=== PATIENT | male | born 1955 ===

== ENCOUNTER 2018-06-06 19:09 | Inpatient (IN) | payer OTHER ==
[2018-06-06] MEDS ORDERED: Sodium Chloride 0.9% 1,000 ML IV STA (19:52)
[2018-06-06] MEDS ORDERED: Iohexol 240 (50 ml) PO STA (19:52)
[2018-06-06] MEDS ORDERED: Iohexol 240 (50 ml) ONE (20:02)
[2018-06-06 20:23] LABS: BLOOD UREA NITROGEN 17 mg/dl (9-20); CALCIUM 9.4 mg/dL (8.4-10.2); GFR NON-AFRICAN AMERICAN > 60
[2018-06-06 20:31] LABS: ALB/GLOB RATIO 1.3 (1.0-2.1); ALBUMIN 4.7 g/dL (3.5-5.0); ALT/SGPT 54 U/L (21-72); AST/SGOT 70 U/L (17-59); BASO % 0.2 % (0.0-2.0); EOS % 0.4 % (0.0-4.0); HEMOGLOBIN 14.5 g/dL (12.0-18.0); LYMPH # 2.1 K/uL (1.0-4.3); LYMPH % 18.2 % (20.0-40.0); MEAN CELL VOLUME 92.2 fl (80.0-94.0); MEAN CORPUSCULAR HEMOGLOBIN 30.1 pg (27.0-31.0); MEAN CORPUSCULAR HGB CONC 32.6 g/dL (33.0-37.0); MEAN PLATELET VOLUME 8.3 fl (7.2-11.7); MONO # 0.4 K/uL (0.0-0.8); NEUT # 8.7 K/uL (1.8-7.0); NEUT % 77.2 % (50.0-75.0); RBC 4.81 Mil/uL (4.40-5.90); RED CELL DISTRIBUTION WIDTH 13.1 % (11.5-14.5); WHITE BLOOD COUNT 11.3 K/uL (4.8-10.8)
--- NOTE | 2018-06-06 20:58 | ED PDOC ---
HPI: Abdomen Time Seen by Provider: 06/06/18 19:39 Chief Complaint (Nursing): Abdominal Pain Chief Complaint (Provider): Abdominal Pain History Per: Patient History/Exam Limitations: no limitations Onset/Duration Of Symptoms: Days (x2) Current Symptoms Are (Timing): Still Present Additional Complaint(s): 62 y/o male with no significant PMHx presents to the ED for evaluation of abdominal pain, onset two days ago. Patient reports pain developed while traveling from [place] two days ago. Patient notes pain is in the lower abdomen. Patient states that since onset of pain he has been touring the area but developed poor appetite and 2 episodes of non-bloody, non-bilious vomiting as well as increased pain to the LLQ and chills. Otherwise, patient denies urinary symptoms, diarrhea and constipation. PMD: in [place] Past Medical History Reviewed: Historical Data, Nursing Documentation, Vital Signs Vital Signs: Last Vital Signs Temp 97.2 F L 06/06/18 19:34 Pulse 59 L 06/06/18 19:34 Resp 16 06/06/18 19:34 BP 140/73 06/06/18 19:34 Pulse Ox 100 06/06/18 19:34 - Medical History PMH: No Chronic Diseases - Surgical History Other surgeries: One prostrate biposy that was negative for cancer - Family History Family History: States: No Known Family Hx - Social History Current smoker - smoking cessation education provided: No Alcohol: None Drugs: Denies - Home Medications Home Medications: Ambulatory Orders Medication Instructions Recorded No Known Home Med 06/07/18 - Allergies Allergies/Adverse Reactions: Allergies Allergy/AdvReac Type Severity Reaction Status Date / Time Sulfa (Sulfonamide Allergy RASH Verified 06/07/18 06:42 Antibiotics) Review of Systems ROS Statement: Except As Marked, All Systems Reviewed And Found Negative (as per HPI) Constitutional: Positive for: Chills Gastrointestinal: Positive for: Vomiting (x2 EPISODES OF NON-BLOODY, NON- BILIOUS), Abdominal Pain, Other (POOR APPETITE). Negative for: Diarrhea, Constipation Genitourinary Male: Negative for: Dysuria, Frequency, Hematuria Physical Exam - Reviewed Nursing Documentation Reviewed: Yes Vital Signs Reviewed: Yes - Physical Exam Appears: Positive for: In Acute Distress (mild painful distress) Head Exam: Positive for: ATRAUMATIC, NORMOCEPHALIC Skin: Positive for: Warm, Dry Eye Exam: Positive for: EOMI, PERRL ENT: Positive for: Other (tachy mucous membrane) Neck: Positive for: Painless ROM, Supple Cardiovascular/Chest: Positive for: Regular Rate, Rhythm. Negative for: Murmur Respiratory: Positive for: Normal Breath Sounds. Negative for: Respiratory Distress Gastrointestinal/Abdominal: Positive for: Soft, Tenderness ([place] Tenderness), Other (Rovsing's Sign). Negative for: Mass, Guarding, Rebound Back: Positive for: Normal Inspection. Negative for: L CVA Tenderness, R CVA Tenderness Extremity: Positive for: Normal ROM. Negative for: Deformity Lymphatic: Negative for: Adenopathy Neurological/Psych: Positive for: Awake. Negative for: Motor/Sensory Deficits - Laboratory Results Result Diagrams: 06/08/18 06:15 06/08/18 06:15 Lab Results: Total Bilirubin 1.4 mg/dl (0.2-1.3) H 06/06/18 20:05 AST 70 U/L (17-59) H 06/06/18 20:05 ALT 54 U/L (21-72) 06/06/18 20:05 Alkaline Phosphatase 111 U/L (38-126) 06/06/18 20:05 Total Protein 8.5 G/DL (6.3-8.2) H 06/06/18 20:05 Albumin 4.7 g/dL (3.5-5.0) 06/06/18 20:05 Globulin 3.7 gm/dL (2.2-3.9) 06/06/18 20:05 Albumin/Globulin Ratio 1.3 (1.0-2.1) 06/06/18 20:05 - ECG O2 Sat by Pulse Oximetry: 100 (RA) Pulse Ox Interpretation: Normal Medical Decision Making Medical Decision Making: Time: 1951 Impression: RLQ pain Differentials include but not limited to appendicitis, colitis, cystitis and mesenteric adenitis Plan: -- CT Abd/Pelvis PO & IV Contrast -- CMP -- Lact Acid, Plasma -- CBC with Differentials -- Morphine 2 mg IVP -- Sodium Chloride IV 1000 mls/hr -- Iohexol 50 ml PO -- Urine Culture -- Urinalysis Scribe Attestation: Documented by Iam Becker, acting as a scribe Yvette Maier MD. Provider Scribe Attestation: All medical record entries made by the Scribe were at my direction and personally dictated by me. I have reviewed the chart and agree that the record accurately reflects my personal performance of the history, physical exam, medical decision making, and the department course for this patient. I have also personally directed, reviewed, and agree with the discharge instructions and disposition. Disposition - Clinical Impression Clinical Impression: Abdominal pain - Disposition Disposition: Transfer of Care Disposition Time: 00:00 Condition: STABLE Patient Signed Over To: Ki Fuller Handoff Comments: Pending CT scan and final ER disposition
[2018-06-06] MEDS ORDERED: Sodium Chloride 0.9% 50 ML IV ONE (22:58)
[2018-06-06] MEDS ORDERED: Iohexol 300 100 ML IJ ONE (22:58)
--- NOTE | 2018-06-07 00:45 | ED PDOC ---
- Laboratory Results Result Diagrams: 06/06/18 20:05 06/06/18 20:05 Lab Results: Total Bilirubin 1.4 mg/dl (0.2-1.3) H 06/06/18 20:05 AST 70 U/L (17-59) H 06/06/18 20:05 ALT 54 U/L (21-72) 06/06/18 20:05 Alkaline Phosphatase 111 U/L (38-126) 06/06/18 20:05 Total Protein 8.5 G/DL (6.3-8.2) H 06/06/18 20:05 Albumin 4.7 g/dL (3.5-5.0) 06/06/18 20:05 Globulin 3.7 gm/dL (2.2-3.9) 06/06/18 20:05 Albumin/Globulin Ratio 1.3 (1.0-2.1) 06/06/18 20:05 - ECG O2 Sat by Pulse Oximetry: 100 (RA) Medical Decision Making Medical Decision Makin:00 Patient signed out to this provider from Dr. Maier. Pending workup and reevaluation. 02:25 CT abd/pelvis Enlarged appendix measuring 1.5 cm. Prominent surrounding inflammatory fat stranding. Mild periappendiceal free fluid. Cholelithiasis. Minimal diffuse thickening of the gallbladder. The liver is of uniform attenuation without mass or defect. There is no intra or extrahepatic biliary ductal dilatation. The spleen is normal. The pancreas is of normal contour and attenuation characteristics. There is no evidence of adrenal mass. Both kidneys demonstrate prompt and equal nephrograms. The kidneys are normal in size, shape and configuration. There is no evidence of renal or ureteral mass. No renal or ureteral calculi are identified. There is no hydroureter or hydronephrosis. There is no bowel wall thickening. No evidence for small or large bowel obstruction. There is no evidence of abdominal ascites or lymphadenopathy. There is no evidence of intrinsic or extrinsic bladder mass. There is no pelvic ascites or lymphadenopathy. Images of the lung bases show no evidence of pleural or parenchymal mass. There are no pleural effusions. The bony structures are free of lytic or blastic lesions. Moderate prostatomegaly. Fat containing right inguinal hernia without incarceration. IMPRESSION: Uncomplicated acute appendicitis without perforation or abscess formation. Prostatomegaly. Cholelithiasis. Minimal diffuse thickening of the gallbladder. Sonographic evaluation is suggested. All results were explained to patient Blood cultures, ABx, and fluids ordered Jactent states he has no pain at this time Surgery resident consulted PAtient admitted ot Dr. Dennis's service Scribe Attestation: Documented by Rico Barahona acting as a scribe for Ki Fuller MD. Provider Scribe Attestation: All medical record entries made by the Scribe were at my direction and personall y dictated by me. I have reviewed the chart and agree that the record accurately reflects my personal performance of the history, physical exam, medical decision making, and the department course for this patient. I have also personally directed, reviewed, and agree with the discharge instructions and disposition. Disposition - Clinical Impression Clinical Impression: Acute appendicitis - POA Present On Arrival: None - Disposition Disposition: Admitted as In-Patient Disposition Time: 03:39 Condition: GUARDED
[2018-06-07] MEDS ORDERED: Piperacillin/Tazobact 3.375 GM in Sodium Chloride 0.9% 100 ML IVPB STA (02:53)
[2018-06-07] MEDS ORDERED: Sodium Chloride 0.9% 1,000 ML IV STA (02:53)
[2018-06-07] MEDS ORDERED: Piperacillin/Tazobact 3.375 gm Inj IVPB ONE (03:13)
[2018-06-07 03:39] LABS: URINE BILIRUBIN NEGATIVE (NEGATIVE); URINE BLOOD SMALL (NEGATIVE); URINE CLARITY CLEAR (Clear); URINE COLOR YELLOW (YELLOW); URINE GLUCOSE (UA) NEG (NEGATIVE); URINE LEUKOCYTE ESTERASE SMALL Leu/uL (Negative); URINE PROTEIN NEGATIVE (NEGATIVE); URINE UROBILINOGEN 0.2-1.0 mg/dL (0.2-1.0)
--- NOTE | 2018-06-07 03:42 | CP.PCM.CON ---
History of Present Illness - History of Present Illness History of Present Illness: General Surgery: Jourdan Patient is a 62 yr old male travelling from [facility] with no PMH who presents to [facility] 2/2 sharp nonradiating RLQ abdominal pain x 2 days. Patient endorses associated n/v x2 and lack of appetite. He last ate 4pm 06/06. Patient otherwise denies GAINES, SOB, CP, stool changes, dysuria. 12 point ROS otherwise negative PMH: denies PSH: skin graft from right thigh to right arm All: Sulfa drugs Social: denies PMD: none Review of Systems - Review of Systems All systems: reviewed and no additional remarkable complaints except (as per HPI) Past Patient History - Past Social History Alcohol: None Drugs: Denies - PSYCHIATRIC Hx Substance Use: No - SURGICAL HISTORY Hx Surgeries: No - ANESTHESIA Hx Anesthesia: No Meds Allergies/Adverse Reactions: Allergies Allergy/AdvReac Type Severity Reaction Status Date / Time No Known Allergies Allergy Verified 06/06/18 19:36 - Medications Medications: Current Medications Sodium Chloride (Sodium Chloride 0.9%) 1,000 mls @ 1,000 mls/hr IV .Q1H STA Stop: 06/07/18 03:52 Last Admin: 06/07/18 03:21 Dose: 1,000 mls/hr Piperacillin Sod/Tazobactam (Sod 3.375 gm/ Sodium Chloride) 100 mls @ 100 mls/hr IVPB STAT STA; Protocol Stop: 06/07/18 03:52 Last Admin: 06/07/18 03:23 Dose: 100 mls/hr Physical Exam - Constitutional Appears: Well, Non-toxic, No Acute Distress - Head Exam Head Exam: ATRAUMATIC, NORMOCEPHALIC - Eye Exam Eye Exam: EOMI - ENT Exam ENT Exam: Mucous Membranes Moist - Respiratory Exam Respiratory Exam: NORMAL BREATHING PATTERN - Cardiovascular Exam Cardiovascular Exam: REGULAR RHYTHM - GI/Abdominal Exam GI & Abdominal Exam: Guarding (RLQ), Soft, Tenderness (RLQ). absent: Rebound - Extremities Exam Extremities exam: Negative for: calf tenderness, pedal edema - Neurological Exam Neurological exam: Alert, Oriented x3 - Psychiatric Exam Psychiatric exam: Normal Affect, Normal Mood - Skin Skin Exam: Dry, Intact, Normal Color, Warm Results - Vital Signs Recent Vital Signs: Last Vital Signs Temp 99.0 F 06/07/18 03:19 Pulse 84 06/07/18 03:19 Resp 18 06/07/18 03:19 BP 127/72 06/07/18 03:19 Pulse Ox 99 06/07/18 03:19 - Labs Result Diagrams: 06/06/18 20:05 06/06/18 20:05 Labs: Laboratory Results - last 24 hr 06/06/18 06/06/18 06/06/18 20:05 20:05 20:05 WBC 11.3 H RBC 4.81 Hgb 14.5 Hct 44.3 MCV 92.2 MCH 30.1 MCHC 32.6 L RDW 13.1 Plt Count 185 MPV 8.3 Neut % (Auto) 77.2 H Lymph % (Auto) 18.2 L [place] % (Auto) 4.0 Eos % (Auto) 0.4 Baso % (Auto) 0.2 Neut # (Auto) 8.7 H Lymph # (Auto) 2.1 [place] # (Auto) 0.4 Eos # (Auto) 0.0 Baso # (Auto) 0.0 Sodium 137 Potassium 5.6 H Chloride 101 Carbon Dioxide 22 Anion Gap 20 BUN 17 Creatinine 0.8 Est GFR ( Amer) > 60 Est GFR (Non-Af Amer) > 60 Random Glucose 145 H Lactic Acid 2.8 H Calcium 9.4 Total Bilirubin 1.4 H AST 70 H ALT 54 Alkaline Phosphatase 111 Total Protein 8.5 H Albumin 4.7 Globulin 3.7 Albumin/Globulin Ratio 1.3 Assessment & Plan - Assessment and Plan (Free Text) Assessment: 62 yr old male with Acute appendicitis Plan: - IVF - IV Abx - NPO - pain control - antiemetics PRN - SCD - repeat labs 0700 - Coags - CXR - EKG - possible OR in AM, will discuss with Dr. Jourdan Sandoval, pGY 1 - Date & Time Date: 06/07/18 Time: 03:25
[2018-06-07] MEDS ORDERED: Morphine 4 MG/ML VIAL IVP PRN (04:13)
[2018-06-07] MEDS ORDERED: Lactated Ringer's 1,000 ML IV SCH ×2 (04:15→04:16)
[2018-06-07] MEDS ORDERED: Sodium Chloride 0.9% 1,000 ML IV SCH (04:30)
[2018-06-07] MEDS ORDERED: Albuterol 0.042% Inhal Sol (1.25 mg/3 mL) UD INH STA (04:39)
[2018-06-07] MEDS ORDERED: Dextrose 50% SYRINGE Inj (50 ml) IVP ONE (04:39)
[2018-06-07] MEDS ORDERED: Calcium Gluconate 4.65 mEq/10 ml Inj IV ONE ×2 (04:39→05:00)
[2018-06-07] MEDS ORDERED: Insulin Regular 100 units/ml SC ONE (04:39)
[2018-06-07] MEDS: Piperacillin/Tazobact 3.375 GM in Sodium Chloride 0.9% 100 ML IVPB SCH ×3 (06:59→17:36)
[2018-06-07 07:10] LABS: ALB/GLOB RATIO 1.2 (1.0-2.1); ALBUMIN 3.8 g/dL (3.5-5.0); ALT/SGPT 245 U/L (21-72); AST/SGOT 204 U/L (17-59); BLOOD UREA NITROGEN 13 mg/dl (9-20); CALCIUM 8.9 mg/dL (8.4-10.2); GFR NON-AFRICAN AMERICAN > 60
[2018-06-07 07:11] LABS: BASO % 0.1 % (0.0-2.0); HEMOGLOBIN 13.6 g/dL (12.0-18.0); LYMPH # 0.9 K/uL (1.0-4.3); LYMPH % 9.2 % (20.0-40.0); MEAN CELL VOLUME 91.3 fl (80.0-94.0); MEAN CORPUSCULAR HEMOGLOBIN 30.5 pg (27.0-31.0); MEAN CORPUSCULAR HGB CONC 33.4 g/dL (33.0-37.0); MEAN PLATELET VOLUME 8.1 fl (7.2-11.7); MONO # 0.3 K/uL (0.0-0.8); MONO % 3.1 % (0.0-10.0); NEUT # 8.9 K/uL (1.8-7.0); NEUT % 87.6 % (50.0-75.0); PLATELET COUNT 157 K/uL (130-400); RBC 4.46 Mil/uL (4.40-5.90); RED CELL DISTRIBUTION WIDTH 13.2 % (11.5-14.5); WHITE BLOOD COUNT 10.2 K/uL (4.8-10.8)
[2018-06-07] MEDS ORDERED: Propofol 10 mg/ml Inj (20 ML) ONE (08:58)
[2018-06-07] MEDS ORDERED: Midazolam 2 MG/2 ML VIAL ONE (08:58)
[2018-06-07] MEDS ORDERED: Lidocaine 2% MPF (5 ml) Inj ONE ×2 (09:00→11:24)
[2018-06-07] MEDS ORDERED: Piperacillin/Tazobact 3.375 GM in Sodium Chloride 0.9% 100 ML IVPB SCH (09:00)
[2018-06-07] MEDS ORDERED: Sevoflurane - Inhalation Anesthetic Liq (250 ml) ONE (09:05)
--- NOTE | 2018-06-07 09:05 | CP.PCM.HP ---
History of Present Illness - History of Present Illness History of Present Illness: H&P for OR 62 M 4 day history of abdominal pain RLQ. Associated with n/v. Denies diarrhea constipation. Pain not associated with meals. Denies f/c. PMH: denies PSH: skin graft right forearm Social: denies ETOH, tobacco Present on Admission - Present on Admission Any Indicators Present on Admission: No Review of Systems - Review of Systems All systems: reviewed and no additional remarkable complaints except - Constitutional Constitutional: absent: Anorexia, Chills, Fever - EENT Eyes: absent: Blurred Vision, Change in Vision Nose/Mouth/Throat: absent: Epistaxis, Nose Pain - Cardiovascular Cardiovascular: absent: Chest Pain, Chest Pain with Activity - Respiratory Respiratory: absent: Cough, Dyspnea - Gastrointestinal Gastrointestinal: Abdominal Pain, Nausea, Vomiting - Genitourinary Genitourinary: absent: Hematuria, Pyuria - Musculoskeletal Musculoskeletal: absent: Stiffness, Tingling - Neurological Neurological: absent: Tremor, Vertigo - Psychiatric Psychiatric: absent: Behavioral Changes, Paranoia - Endocrine Endocrine: absent: Palpitations, Polydipsia - Hematologic/Lymphatic Hematologic: absent: Easy Bleeding, Easy Bruising Past Patient History - Past Medical History & Family History Past Medical History?: No - Past Social History Smoking Status: Never Smoked - CARDIAC Hx Cardiac Disorders: No - PULMONARY Hx Respiratory Disorders: No - NEUROLOGICAL Hx Neurological Disorder: No - HEENT Hx HEENT Problems: No - RENAL Hx Chronic Kidney Disease: No - ENDOCRINE/METABOLIC Hx Endocrine Disorders: No - HEMATOLOGICAL/ONCOLOGICAL Hx Blood Disorders: No Hx AIDS: No Hx Human Immunodeficiency Virus (HIV): No - INTEGUMENTARY Other/Comment: At age 8 skin graft Right arm secondary to accident. Right thigh donor site. - MUSCULOSKELETAL/RHEUMATOLOGICAL Hx Musculoskeletal Disorders: No Hx Falls: No - GASTROINTESTINAL Hx Gastrointestinal Disorders: No - GENITOURINARY/GYNECOLOGICAL Hx Genitourinary Disorders: No - PSYCHIATRIC Hx Psychophysiologic Disorder: No Hx Substance Use: No - SURGICAL HISTORY Hx Surgeries: Yes Other/Comment: At age 8, Skin graft to right arm secondary to accident. Donor site R thigh - ANESTHESIA Hx Anesthesia: Yes Hx Anesthesia Reactions: No Hx Malignant Hyperthermia: No Has any member of the family had a problem w/ anesthesia?: No Meds Allergies/Adverse Reactions: Allergies Allergy/AdvReac Type Severity Reaction Status Date / Time Sulfa (Sulfonamide Allergy RASH Verified 06/07/18 06:42 Antibiotics) Physical Exam - Constitutional Appears: Non-toxic, No Acute Distress - Head Exam Head Exam: ATRAUMATIC, NORMOCEPHALIC - Eye Exam Eye Exam: EOMI, Normal appearance - ENT Exam ENT Exam: Mucous Membranes Moist - Respiratory Exam Respiratory Exam: NORMAL BREATHING PATTERN. absent: Respiratory Distress - Cardiovascular Exam Cardiovascular Exam: REGULAR RHYTHM. absent: Tachycardia - GI/Abdominal Exam GI & Abdominal Exam: Soft, Tenderness (RLQ). absent: Guarding, Rigid Results - Vital Signs Recent Vital Signs: Last Vital Signs Temp 100.3 F H 06/07/18 08:09 Pulse 81 06/07/18 08:09 Resp 20 06/07/18 08:09 BP 122/69 06/07/18 08:09 Pulse Ox 96 06/07/18 08:09 - Labs Result Diagrams: 06/07/18 06:05 06/07/18 06:05 Labs: Laboratory Results - last 24 hr 06/06/18 06/06/18 06/06/18 20:05 20:05 20:05 WBC 11.3 H RBC 4.81 Hgb 14.5 Hct 44.3 MCV 92.2 MCH 30.1 MCHC 32.6 L RDW 13.1 Plt Count 185 MPV 8.3 Neut % (Auto) 77.2 H Lymph % (Auto) 18.2 L [place] % (Auto) 4.0 Eos % (Auto) 0.4 Baso % (Auto) 0.2 Neut # (Auto) 8.7 H Lymph # (Auto) 2.1 [place] # (Auto) 0.4 Eos # (Auto) 0.0 Baso # (Auto) 0.0 Sodium 137 Potassium 5.6 H Chloride 101 Carbon Dioxide 22 Anion Gap 20 BUN 17 Creatinine 0.8 Est GFR ( Amer) > 60 Est GFR (Non-Af Amer) > 60 Random Glucose 145 H Lactic Acid 2.8 H Calcium 9.4 Total Bilirubin 1.4 H AST 70 H ALT 54 Alkaline Phosphatase 111 Total Protein 8.5 H Albumin 4.7 Globulin 3.7 Albumin/Globulin Ratio 1.3 Urine Color Urine Clarity Urine pH Ur Specific [place] Urine Protein Urine Glucose (UA) Urine Ketones Urine Blood Urine Nitrate Urine Bilirubin Urine Urobilinogen Ur Leukocyte Esterase Urine RBC (Auto) Urine Microscopic WBC 0406/07/18 06/07/18 03:15 06:05 06:05 WBC 10.2 RBC 4.46 Hgb 13.6 Hct 40.7 MCV 91.3 MCH 30.5 MCHC 33.4 RDW 13.2 Plt Count 157 MPV 8.1 Neut % (Auto) 87.6 H Lymph % (Auto) 9.2 L [place] % (Auto) 3.1 Eos % (Auto) 0.0 Baso % (Auto) 0.1 Neut # (Auto) 8.9 H Lymph # (Auto) 0.9 L [place] # (Auto) 0.3 Eos # (Auto) 0.0 Baso # (Auto) 0.0 Sodium 137 Potassium 3.8 Chloride 102 Carbon Dioxide 26 Anion Gap 13 BUN 13 Creatinine 0.8 Est GFR ( Amer) > 60 Est GFR (Non-Af Amer) > 60 Random Glucose 194 H Lactic Acid Calcium 8.9 Total Bilirubin 2.2 H AST 204 H D ALT 245 H D Alkaline Phosphatase 118 Total Protein 6.9 Albumin 3.8 Globulin 3.1 Albumin/Globulin Ratio 1.2 Urine Color Yellow Urine Clarity Clear Urine pH 6.0 Ur Specific [place] 1.054 H Urine Protein Negative Urine Glucose (UA) Neg Urine Ketones Negative Urine Blood Small Urine Nitrate Negative Urine Bilirubin Negative Urine Urobilinogen 0.2-1.0 Ur Leukocyte Esterase Small Urine RBC (Auto) 9 H Urine Microscopic WBC 18 H Assessment & Plan - Assessment and Plan (Free Text) Assessment: 62 y/o male w/ appendicitis Plan: -for OR -NPO -IV abx -[facility]
--- NOTE | 2018-06-07 09:12 | CP.PCM.HP ---
History of Present Illness - History of Present Illness History of Present Illness: CC: RLQ pain and vomiting HPI: 62 y/o Male pt with no PMH presented to the ED with worsening lower quadrant pain and associated vomiting x 2 days. PMH: None. PSH: Prostate biospy, negative for cancer. Assessment/Impression/Plan: 1.) Appendicitis: -CT A/P revealed uncomplicated acute appendicitis without perforation. -For OR with surgical team today. -CXR- unremarkable/no active disease (my interpretation) -EKG- NSR -Coags WNL. Medically stable for surgery. Present on Admission - Present on Admission Any Indicators Present on Admission: No Past Patient History - Past Medical History & Family History Past Medical History?: No - Past Social History Smoking Status: Never Smoked - CARDIAC Hx Cardiac Disorders: No - PULMONARY Hx Respiratory Disorders: No - NEUROLOGICAL Hx Neurological Disorder: No - HEENT Hx HEENT Problems: No - RENAL Hx Chronic Kidney Disease: No - ENDOCRINE/METABOLIC Hx Endocrine Disorders: No - HEMATOLOGICAL/ONCOLOGICAL Hx Blood Disorders: No Hx AIDS: No Hx Human Immunodeficiency Virus (HIV): No - INTEGUMENTARY Other/Comment: At age 8 skin graft Right arm secondary to accident. Right thigh donor site. - MUSCULOSKELETAL/RHEUMATOLOGICAL Hx Musculoskeletal Disorders: No Hx Falls: No - GASTROINTESTINAL Hx Gastrointestinal Disorders: No - GENITOURINARY/GYNECOLOGICAL Hx Genitourinary Disorders: No - PSYCHIATRIC Hx Psychophysiologic Disorder: No Hx Substance Use: No - SURGICAL HISTORY Hx Surgeries: Yes Other/Comment: At age 8, Skin graft to right arm secondary to accident. Donor site R thigh - ANESTHESIA Hx Anesthesia: Yes Hx Anesthesia Reactions: No Hx Malignant Hyperthermia: No Has any member of the family had a problem w/ anesthesia?: No Meds Allergies/Adverse Reactions: Allergies Allergy/AdvReac Type Severity Reaction Status Date / Time Sulfa (Sulfonamide Allergy RASH Verified 06/07/18 06:42 Antibiotics) Results - Vital Signs Recent Vital Signs: Last Vital Signs Temp 100.3 F H 06/07/18 08:09 Pulse 81 06/07/18 08:09 Resp 20 06/07/18 08:09 BP 122/69 06/07/18 08:09 Pulse Ox 96 06/07/18 08:09 - Labs Result Diagrams: 06/07/18 06:05 06/07/18 06:05 Labs: Laboratory Results - last 24 hr 06/06/18 06/06/18 06/06/18 20:05 20:05 20:05 WBC 11.3 H RBC 4.81 Hgb 14.5 Hct 44.3 MCV 92.2 MCH 30.1 MCHC 32.6 L RDW 13.1 Plt Count 185 MPV 8.3 Neut % (Auto) 77.2 H Lymph % (Auto) 18.2 L [place] % (Auto) 4.0 Eos % (Auto) 0.4 Baso % (Auto) 0.2 Neut # (Auto) 8.7 H Lymph # (Auto) 2.1 [place] # (Auto) 0.4 Eos # (Auto) 0.0 Baso # (Auto) 0.0 Sodium 137 Potassium 5.6 H Chloride 101 Carbon Dioxide 22 Anion Gap 20 BUN 17 Creatinine 0.8 Est GFR ( Amer) > 60 Est GFR (Non-Af Amer) > 60 Random Glucose 145 H Lactic Acid 2.8 H Calcium 9.4 Total Bilirubin 1.4 H AST 70 H ALT 54 Alkaline Phosphatase 111 Total Protein 8.5 H Albumin 4.7 Globulin 3.7 Albumin/Globulin Ratio 1.3 Urine Color Urine Clarity Urine pH Ur Specific [place] Urine Protein Urine Glucose (UA) Urine Ketones Urine Blood Urine Nitrate Urine Bilirubin Urine Urobilinogen Ur Leukocyte Esterase Urine RBC (Auto) Urine Microscopic WBC 06/07/18 06/07/18 06/07/18 03:15 06:05 06:05 WBC 10.2 RBC 4.46 Hgb 13.6 Hct 40.7 MCV 91.3 MCH 30.5 MCHC 33.4 RDW 13.2 Plt Count 157 MPV 8.1 Neut % (Auto) 87.6 H Lymph % (Auto) 9.2 L [place] % (Auto) 3.1 Eos % (Auto) 0.0 Baso % (Auto) 0.1 Neut # (Auto) 8.9 H Lymph # (Auto) 0.9 L [place] # (Auto) 0.3 Eos # (Auto) 0.0 Baso # (Auto) 0.0 Sodium 137 Potassium 3.8 Chloride 102 Carbon Dioxide 26 Anion Gap 13 BUN 13 Creatinine 0.8 Est GFR ( Amer) > 60 Est GFR (Non-Af Amer) > 60 Random Glucose 194 H Lactic Acid Calcium 8.9 Total Bilirubin 2.2 H AST 204 H D ALT 245 H D Alkaline Phosphatase 118 Total Protein 6.9 Albumin 3.8 Globulin 3.1 Albumin/Globulin Ratio 1.2 Urine Color Yellow Urine Clarity Clear Urine pH 6.0 Ur Specific [place] 1.054 H Urine Protein Negative Urine Glucose (UA) Neg Urine Ketones Negative Urine Blood Small Urine Nitrate Negative Urine Bilirubin Negative Urine Urobilinogen 0.2-1.0 Ur Leukocyte Esterase Small Urine RBC (Auto) 9 H Urine Microscopic WBC 18 H Assessment & Plan (1) Acute appendicitis Status: Acute
[2018-06-07] MEDS ORDERED: Lactated Ringer's 1,000 ML IV ONE ×2 (09:45→11:10)
[2018-06-07 10:04] LABS: INR 1.1; PROTHROMBIN TIME 13.8 Seconds (9.8-13.1)
[2018-06-07 10:07] LABS: PARTIAL THROMBOPLASTIN TIME 30.2 Seconds (25.6-37.1)
[2018-06-07] MEDS ORDERED: Bupivacaine 0.5% 50 ML IJ ONE ×2 (10:32)
[2018-06-07] MEDS ORDERED: Neostigmine 1:1000 (1 mg/ml) Inj ONE (11:18)
--- NOTE | 2018-06-07 11:35 | CT ---
Date of service: 06/06/2018 PROCEDURE: CT Abdomen and Pelvis with contrast HISTORY: abd pain COMPARISON: None. TECHNIQUE: Contrast dose: 95 mL Omnipaque 300 Radiation dose: Total exam DLP = 926.39 mGy-cm. This CT exam was performed using one or more of the following dose reduction techniques: Automated exposure control, adjustment of the mA and/or kV according to patient size, and/or use of iterative reconstruction technique. FINDINGS: LOWER THORAX: Unremarkable. LIVER: Unremarkable. No gross lesion or ductal dilatation. GALLBLADDER AND BILE DUCTS: Cholelithiasis without gallbladder wall thickening or pericholecystic fluid PANCREAS: Unremarkable. No gross lesion or ductal dilatation. SPLEEN: Unremarkable. ADRENALS: Unremarkable. No mass. KIDNEYS AND URETERS: Unremarkable. No hydronephrosis. No solid mass. VASCULATURE: Unremarkable. No aortic aneurysm. No aortic atherosclerotic calcification or mural plaque present. BOWEL: Unremarkable. No obstruction. No gross mural thickening. APPENDIX: Dilated thick-walled appendix measuring up to 1.9 cm with extensive periappendiceal stranding. PERITONEUM: Right inguinal fat containing hernia. No free fluid. No free air. LYMPH NODES: Unremarkable. No enlarged lymph nodes. BLADDER: Mildly thick-walled bladder with trabeculations likely related to chronic bladder outlet obstruction REPRODUCTIVE: Prostatomegaly. BONES: No acute fracture. OTHER FINDINGS: None. IMPRESSION: Acute appendicitis without perforation or abscess formation. Cholelithiasis without evidence for acute cholecystitis. Additional findings as above.
[2018-06-07] MEDS ORDERED: oxyCODONE 5 mg Immediate Release Tab PO PRN (11:37)
[2018-06-07] MEDS ORDERED: oxyCODONE 10 mg Immediate Release Tab PO PRN (11:37)
[2018-06-07] MEDS ORDERED: HYDROmorphone 0.5 mg/0.5 ml ISec IVP PRN (11:37)
--- NOTE | 2018-06-07 11:43 | PCM.SURG1 ---
Surgeon's Initial Post Op Note - Surgeon's Notes Surgeon: Dr. Soliman Administrative Liaison: Dr. Bateman PGY4 Type of Anesthesia: General Endo, Local Pre-Operative Diagnosis: acute appendicitis Operative Findings: severely inflammed appendix, perforated and gangrenous Post-Operative Diagnosis: acute gangrenous perforated appendicitis Operation Performed: laparoscopic appendectomy Specimen/Specimens Removed: appendix Estimated Blood Loss: EBL {In ML}: 25 Blood Products Given: N/A Drains Used: Kevin Post-Op Condition: Good Date of Surgery/Procedure: 06/07/18 Time of Surgery/Procedure: 11:42
--- NOTE | 2018-06-07 11:57 | RAD ---
Date of service: 06/07/2018 PROCEDURE: CHEST RADIOGRAPH, 1 VIEW HISTORY: preop COMPARISON: None available. FINDINGS: LUNGS: Clear. PLEURA: No pneumothorax or pleural fluid seen. CARDIOVASCULAR: No aortic atherosclerotic calcification present. Cardiomediastinal silhouette enlarged. OSSEOUS STRUCTURES: Spinal degenerative changes. VISUALIZED UPPER ABDOMEN: Normal. OTHER FINDINGS: None. IMPRESSION: No active disease.
[2018-06-07 12:43] LABS: BANDS 1 % (0-2); LYMPHOCYTE 7 % (20-50); MONOCYTE 4 % (0-10); NEUTROPHIL 88 % (42-75); TOTAL CELLS COUNTED 100
[2018-06-07 12:44] LABS: PLATELET ESTIMATE NORMAL (NORMAL)
[2018-06-07] MEDS: Lactated Ringer's 1,000 ML IV SCH ×2 (12:50→21:33)
--- NOTE | 2018-06-07 21:22 | CARD ---
APPROVED REPORT Date of service: 06/06/2018 EKG Measurement Heart [id number] <Conclusion> Normal sinus rhythm with sinus arrhythmia Possible Left atrial enlargement Borderline ECG
[2018-06-07 22:34] VITALS: BMI 30.2
[2018-06-08] MEDS: Piperacillin/Tazobact 3.375 GM in Sodium Chloride 0.9% 100 ML IVPB SCH ×4 (00:08→18:38)
[2018-06-08 06:29] LABS: BASO % 0.4 % (0.0-2.0); EOS % 0.2 % (0.0-4.0); HEMOGLOBIN 12.3 g/dL (12.0-18.0); LYMPH # 1.4 K/uL (1.0-4.3); LYMPH % 15.1 % (20.0-40.0); MEAN CELL VOLUME 91.6 fl (80.0-94.0); MEAN CORPUSCULAR HEMOGLOBIN 30.4 pg (27.0-31.0); MEAN CORPUSCULAR HGB CONC 33.2 g/dL (33.0-37.0); MONO # 0.5 K/uL (0.0-0.8); MONO % 5.1 % (0.0-10.0); NEUT # 7.3 K/uL (1.8-7.0); NEUT % 79.2 % (50.0-75.0); NRBC % 0.1 % (0.0-0.0); RBC 4.06 Mil/uL (4.40-5.90); RED CELL DISTRIBUTION WIDTH 13.2 % (11.5-14.5); WHITE BLOOD COUNT 9.3 K/uL (4.8-10.8)
[2018-06-08 06:46] LABS: ALB/GLOB RATIO 1.1 (1.0-2.1); ALBUMIN 3.4 g/dL (3.5-5.0); ALT/SGPT 137 U/L (21-72); AST/SGOT 57 U/L (17-59); BLOOD UREA NITROGEN 13 mg/dl (9-20); CALCIUM 8.4 mg/dL (8.4-10.2); GFR NON-AFRICAN AMERICAN > 60
--- NOTE | 2018-06-08 07:34 | CP.PCM.PN ---
Subjective - Date & Time of Evaluation Date of Evaluation: 06/08/18 Time of Evaluation: 07:34 - Subjective Subjective: General Surgery Note: Dr. Soliman 62 year old male patient, seen and examined POD#1 laparoscopic appendectomy. Patient resting comfortably and in NAD. Denies BM or flatus at this time. Patient endorses minimal pain to surgical site. Kevin drain to RLQ with output of 70ml overnight. Denies nausea/vomiting/fever/shortness of breath. Objective - Vital Signs/Intake and Output Vital Signs (last 24 hours): Temp Pulse Resp BP Pulse Ox 98.6 F 60 18 117/71 99 06/08/18 04:00 06/08/18 04:00 06/08/18 04:00 06/08/18 04:00 06/08/18 04:00 - Medications Medications: Current Medications Acetaminophen (Tylenol 325mg Tab) 650 mg PO Q6 DOMINGO Last Admin: 06/08/18 03:40 Dose: 650 mg Enoxaparin Sodium (Lovenox) 40 mg SC DAILY DOMINGO; Protocol Hydromorphone HCl (Dilaudid) 0.5 mg IVP Q15M PRN PRN Reason: Pain, moderate (4-7) Last Admin: 06/07/18 12:00 Dose: 0.5 mg Piperacillin Sod/Tazobactam (Sod 3.375 gm/ Sodium Chloride) 100 mls @ 100 mls/hr IVPB Q6H DOMINGO; Protocol Last Admin: 06/08/18 05:03 Dose: 100 mls/hr Lactated Ringer's (Lactated Ringer's) 1,000 mls @ 100 mls/hr IV .Q10H [facility] Last Admin: 06/07/18 21:33 Dose: Not Given Ondansetron HCl (Zofran Inj) 4 mg IVP Q4 PRN PRN Reason: Nausea/Vomiting Oxycodone HCl (Oxycodone Immediate Release Tab) 5 mg PO Q4 PRN PRN Reason: Pain, moderate (4-7) Last Admin: 06/08/18 00:07 Dose: 5 mg Oxycodone HCl (Oxycodone Immediate Release Tab) 10 mg PO Q4 PRN PRN Reason: Pain, Severe (8-10) - Labs Labs: 06/08/18 06:15 06/08/18 06:15 PT 13.8 Seconds (9.8-13.1) H 06/07/18 09:20 INR 1.1 06/07/18 09:20 APTT 30.2 Seconds (25.6-37.1) 06/07/18 09:20 - Constitutional Appears: Non-toxic, No Acute Distress - Head Exam Head Exam: ATRAUMATIC, NORMOCEPHALIC - Eye Exam Eye Exam: Normal appearance - ENT Exam ENT Exam: Mucous Membranes Moist - Respiratory Exam Respiratory Exam: NORMAL BREATHING PATTERN - Cardiovascular Exam Cardiovascular Exam: REGULAR RHYTHM - GI/Abdominal Exam GI & Abdominal Exam: Soft. absent: Tenderness Additional comments: Skin edges well coapted at area of surgical site, mild erythema, no drainage, no clinical signs of infection Kevin drain intact - Extremities Exam Extremities Exam: absent: Calf Tenderness - Neurological Exam Neurological Exam: Alert, Awake, Oriented x3 - Psychiatric Exam Psychiatric exam: Normal Affect, Normal Mood - Skin Skin Exam: Warm Assessment and Plan - Assessment and Plan (Free Text) Assessment: 62 year old male POD#1 laparoscopic appendectomy secondary to acute gangrenous perforated appendicitis. Plan: - Clear liquid diet - C/w IV abx - F/U pathology report - Encouraged ambulation - Pain control - Further recs per Dr. Jourdan Mao PGY 1
[2018-06-08] MEDS: Lactated Ringer's 1,000 ML IV SCH ×3 (08:00→18:34)
--- NOTE | 2018-06-08 08:21 | OP ---
PROCEDURE DATE: 06/07/2018 PREOPERATIVE DIAGNOSIS: Acute appendicitis. POSTOPERATIVE DIAGNOSIS: Acute gangrenous perforated appendicitis. PROCEDURE: Laparoscopic appendectomy. SURGEON: Jabari Soliman MD MAILROOM ASSOCIATE: Brianna Bateman DO, PGY-4 ANESTHESIA: General. PROCEDURE IN DETAIL: After informed consent was obtained, the patient was brought to the operating suite and placed on the operating room table. Preoperatively, 3.375 g of IV Zosyn was administered. General anesthesia was induced. A Calhoun catheter was not inserted as the patient was able to void operation. Right arm was tucked. In supine position, abdomen was prepped and draped in the usual sterile fashion using chlorhexidine prep. A time-out was has identifying appropriate patient and procedure. Local anesthetic was injected to the infraumbilical site, and an underlying vertical incision was made with a 11-blade and bluntly carried down to the fascia with a Nirmala clamp. Using Visiport technique, a 5-mm laparoscope was inserted into the abdomen under direct vision. Prior to insertion of laparoscope, a Veress needle was inserted into the incision, and pneumoperitoneum was achieved at approximately of 15 mmHg. Subsequently, the following ports were inserted under direct visualization along with local anesthetic in a typical fashion: Left lower quadrant 12-mm port and a 5-mm port in the suprapubic region. The patient was then placed in a Trendelenburg position with the left side down. The peritoneal cavity was initially inspected, and it was noted that there was purulent free fluid in the right lower quadrant as well as erythematous infected peritoneal tissue and some omental adhesions. We began our dissection by taking down the anterior abdominal wall omental adhesions using Bovie Harmonic. Once these were found to be free, the omentum was then swept in a cephalad position using atraumatic graspers and blunt suction and irrigated. Once the omentum was swept cephalad, the appendix was immediately identified in the right lower quadrant. The tip of the appendix was then grasped with atraumatic graspers and lifted anterior and cephalad. This allowed for dissection of the mesoappendix using Bovie Harmonic. The appendiceal artery was identified and divided using electrocautery. The appendix then continued to be freed and unfolded from the inflamed peritoneum and surrounding tissue. The base of the appendix was identified, and the cecum appeared healthy. An endoscopic linear cutting staple was then used to divide the stapled base of the appendix using a green loaded staple. The base of the cecum was then inspected and found to be intact. The staple line appeared to be hemostatic. The appendix was placed in a sterile endoscopic bag, and the specimen was removed from the abdomen. The right lower quadrant and pelvis were then suctioned of the purulent fluid. Irrigation of the right lower quadrant and pelvis were also performed. There was good hemostasis achieved, and all ports were removed under direct vision. The fascia of the left lower quadrant 12-mm port was closed using a [id number] fashion of a 0 Vicryl suture in a running stitch. All of the ports were closed using a 4-0 Monocryl suture in a continuous subcuticular fashion. The remainder of 10 mL of local anesthetic was injected into the 3-4 port sites. In addition, prior to closure of the incisions, a Kevin drain was placed through the suprapubic 5-mm port site and placed into the right lower quadrant of the abdomen. This was sutured in place with a 2-0 silk suture. The operative field was cleaned and dried. Steri-Strips and dressings were applied. There were no immediate intraoperative complications. Estimated blood loss was approximately 25 mL. All instruments and sponge counts were correct at the end of the case. The patient was then extubated and transferred into post-anesthesia care unit in stable condition. COMPLICATIONS: None. ESTIMATED BLOOD LOSS: 25 mL. DRAINS: Kevin drain is placed in the right lower quadrant. SPECIMEN: Appendix. Lucila-Jazmin Bateman DO Jabari Soliman MD
[2018-06-08] MEDS: Enoxaparin 40 mg Syringe SC SCH (10:37)
[2018-06-08] MEDS: Potassium Chloride 20 mEq ER Tab PO SCH ×2 (10:38→11:53)
--- NOTE | 2018-06-08 15:38 | PN ---
DATE: 06/08/2018 SUBJECTIVE: The patient seen and examined. Interim events noted. Consults noted and appreciated. Surgery followup and interventions noted and appreciated. The patient feels much better. Denies any specific complaint of chest pain or shortness of breath. Abdominal pain is present, but controlled. OBJECTIVE: GENERAL: The patient is in no acute distress. VITAL SIGNS: Stable. HEART: S1 and S2. Normal and regular. LUNGS: Good bilateral air exchange. ABDOMEN: Soft and nontender. The patient has CATHRYN drainage. No sign of acute complication. No guarding. No rigidity. No rebound. EXTREMITIES: No edema, no calf swelling, no tenderness, no acute ischemia. CENTRAL NERVOUS SYSTEM: Essentially unchanged. DIAGNOSTIC DATA: Available diagnostic data reviewed. Urine culture shows gram-positive cocci. B12 level is 323. TSH level is 2.16. WBC 9.3, hemoglobin 12.3, hematocrit 37.2, platelets 136. Sodium 136, potassium 3.5, chloride 102, bicarb 28, BUN 13, creatinine 0.9. SMA-12 is essentially unremarkable. ALT is 237. ASSESSMENT: Overall, the patient is clinically stable and improving, still has Neftali-Callejas drain. PLAN: As ordered. Case and plan discussed with the patient. Андрей Dennis MD
[2018-06-08] MEDS: Simethicone 80 mg Chewtab PO PRN (17:39)
[2018-06-09] MEDS: Piperacillin/Tazobact 3.375 GM in Sodium Chloride 0.9% 100 ML IVPB SCH ×3 (00:36→12:21)
[2018-06-09] MEDS: Lactated Ringer's 1,000 ML IV SCH (03:25)
[2018-06-09 06:30] LABS: HEMOGLOBIN 13.7 g/dL (12.0-18.0); MEAN CORPUSCULAR HEMOGLOBIN 30.8 pg (27.0-31.0); MEAN CORPUSCULAR HGB CONC 33.5 g/dL (33.0-37.0); RBC 4.45 Mil/uL (4.40-5.90); RED CELL DISTRIBUTION WIDTH 13.2 % (11.5-14.5); WHITE BLOOD COUNT 11.3 K/uL (4.8-10.8)
[2018-06-09 06:44] LABS: ALB/GLOB RATIO 1.2 (1.0-2.1); ALBUMIN 3.9 g/dL (3.5-5.0); ALT/SGPT 103 U/L (21-72); AST/SGOT 36 U/L (17-59); BLOOD UREA NITROGEN 14 mg/dl (9-20); CALCIUM 8.9 mg/dL (8.4-10.2); GFR NON-AFRICAN AMERICAN > 60
[2018-06-09] MEDS: Enoxaparin 40 mg Syringe SC SCH (08:22)
--- NOTE | 2018-06-09 08:24 | CP.PCM.PN ---
Subjective - Date & Time of Evaluation Date of Evaluation: 06/09/18 Time of Evaluation: 08:21 - Subjective Subjective: General Surgery Note for Dr. Soliman Patient seen and examined. No acute event overnight. He is s/p laparoscopic appendectomy POD#2. Patient reports pain is controlled. He admits to flatus and BMs. Denies fever/chills or nausea/vomiting. Not able to eat much food. Kevin drain to RLQ with output of 350ml/24hrs. Patient reports issue voiding stating that he is frequently going in small amounts. Objective - Vital Signs/Intake and Output Vital Signs (last 24 hours): Temp Pulse Resp BP Pulse Ox 97.4 F L 66 20 147/85 98 06/08/18 23:57 06/08/18 23:57 06/08/18 23:57 06/08/18 23:57 06/08/18 23:57 Intake and Output: 06/09/18 06/09/18 06:59 18:59 Intake Total 1400 Output Total 350 Balance 1050 - Medications Medications: Current Medications Acetaminophen (Tylenol 325mg Tab) 650 mg PO Q6 DOMINGO Last Admin: 06/09/18 03:05 Dose: 650 mg Enoxaparin Sodium (Lovenox) 40 mg SC DAILY DOMINGO; Protocol Last Admin: 06/08/18 10:37 Dose: 40 mg Hydromorphone HCl (Dilaudid) 0.5 mg IVP Q15M PRN PRN Reason: Pain, moderate (4-7) Last Admin: 06/07/18 12:00 Dose: 0.5 mg Piperacillin Sod/Tazobactam (Sod 3.375 gm/ Sodium Chloride) 100 mls @ 100 mls/hr IVPB Q6H DOMINGO; Protocol Last Admin: 06/09/18 05:03 Dose: 100 mls/hr Lactated Ringer's (Lactated Ringer's) 1,000 mls @ 100 mls/hr IV .Q10H [facility]INGO Last Admin: 06/09/18 03:25 Dose: 100 mls/hr Ondansetron HCl (Zofran Inj) 4 mg IVP Q4 PRN PRN Reason: Nausea/Vomiting Last Admin: 06/09/18 02:49 Dose: 4 mg Oxycodone HCl (Oxycodone Immediate Release Tab) 5 mg PO Q4 PRN PRN Reason: Pain, moderate (4-7) Last Admin: 06/08/18 00:07 Dose: 5 mg Oxycodone HCl (Oxycodone Immediate Release Tab) 10 mg PO Q4 PRN PRN Reason: Pain, Severe (8-10) Simethicone (Mylicon Chew Tab) 80 mg PO Q8 PRN PRN Reason: GI distress Last Admin: 06/08/18 17:39 Dose: 80 mg - Labs Labs: 06/09/18 05:55 06/09/18 05:55 PT 13.8 Seconds (9.8-13.1) H 06/07/18 09:20 INR 1.1 06/07/18 09:20 APTT 30.2 Seconds (25.6-37.1) 06/07/18 09:20 - Additional Findings Additional findings: - Constitutional Appears: Non-toxic, No Acute Distress - Head Exam Head Exam: ATRAUMATIC, NORMOCEPHALIC - Eye Exam Eye Exam: Normal appearance - ENT Exam ENT Exam: Mucous Membranes Moist - Respiratory Exam Respiratory Exam: NORMAL BREATHING PATTERN - Cardiovascular Exam Cardiovascular Exam: REGULAR RHYTHM - GI/Abdominal Exam GI & Abdominal Exam: Soft. absent: Tenderness Additional comments: surgical site intact with no drainage Kevin drain in place - Extremities Exam Extremities Exam: absent: Calf Tenderness - Neurological Exam Neurological Exam: Alert, Awake, Oriented x3 - Psychiatric Exam Psychiatric exam: Normal Affect, Normal Mood - Skin Skin Exam: Warm Assessment and Plan - Assessment and Plan (Free Text) Assessment: 62 M s/p laparoscopic appendectomy secondary to acute gangrenous perforated appendicitis POD#2 Plan: - Regular diet - IV abx - F/U pathology report - OOB/Encouraged ambulation/IS - Pain control - PT - DVT ppx - Further recs per Dr. Jourdan Garber PGY2
--- NOTE | 2018-06-09 08:33 | CP.PCM.PN ---
Subjective - Date & Time of Evaluation Date of Evaluation: 06/09/18 Time of Evaluation: 07:10 - Subjective Subjective: 62 y/o M was seen and examined by bedside with Dr Dennis. Pt reports feeling OK, mildly nauseous but eager to start solid food. Pain is well controlled with medications. Pt is passing gasses, had a small bowel movement last night. Pt afebrile and tolerating PO liquids. CATHRYN drain present with serous discharge. Objective - Vital Signs/Intake and Output Vital Signs (last 24 hours): Temp Pulse Resp BP Pulse Ox 97 F L 58 L 20 157/92 H 96 06/09/18 08:28 06/09/18 08:28 06/09/18 08:28 06/09/18 08:28 06/09/18 08:28 Intake and Output: 06/09/18 06/09/18 06:59 18:59 Intake Total 1400 Output Total 350 Balance 1050 - Medications Medications: Current Medications Acetaminophen (Tylenol 325mg Tab) 650 mg PO Q6 DOMINGO Last Admin: 06/09/18 03:05 Dose: 650 mg Enoxaparin Sodium (Lovenox) 40 mg SC DAILY DOMINGO; Protocol Last Admin: 06/09/18 08:22 Dose: 40 mg Hydromorphone HCl (Dilaudid) 0.5 mg IVP Q15M PRN PRN Reason: Pain, moderate (4-7) Last Admin: 06/07/18 12:00 Dose: 0.5 mg Piperacillin Sod/Tazobactam (Sod 3.375 gm/ Sodium Chloride) 100 mls @ 100 mls/hr IVPB Q6H DOMINGO; Protocol Last Admin: 06/09/18 05:03 Dose: 100 mls/hr Lactated Ringer's (Lactated Ringer's) 1,000 mls @ 100 mls/hr IV .Q10H [facility]INGO Last Admin: 06/09/18 03:25 Dose: 100 mls/hr Ondansetron HCl (Zofran Inj) 4 mg IVP Q4 PRN PRN Reason: Nausea/Vomiting Last Admin: 06/09/18 02:49 Dose: 4 mg Oxycodone HCl (Oxycodone Immediate Release Tab) 5 mg PO Q4 PRN PRN Reason: Pain, moderate (4-7) Last Admin: 06/08/18 00:07 Dose: 5 mg Oxycodone HCl (Oxycodone Immediate Release Tab) 10 mg PO Q4 PRN PRN Reason: Pain, Severe (8-10) Simethicone (Mylicon Chew Tab) 80 mg PO Q8 PRN PRN Reason: GI distress Last Admin: 06/08/18 17:39 Dose: 80 mg - Labs Labs: 06/09/18 05:55 06/09/18 05:55 PT 13.8 Seconds (9.8-13.1) H 06/07/18 09:20 INR 1.1 06/07/18 09:20 APTT 30.2 Seconds (25.6-37.1) 06/07/18 09:20 - Constitutional Appears: No Acute Distress - Head Exam Head Exam: ATRAUMATIC, NORMAL INSPECTION - Eye Exam Eye Exam: EOMI, Normal appearance - ENT Exam ENT Exam: Mucous Membranes Moist - Neck Exam Neck Exam: Full ROM. absent: Meningismus - Respiratory Exam Respiratory Exam: NORMAL BREATHING PATTERN. absent: Rales, Rhonchi, Wheezes, Respiratory Distress - Cardiovascular Exam Cardiovascular Exam: REGULAR RHYTHM, +S1, +S2 - GI/Abdominal Exam GI & Abdominal Exam: Soft, Tenderness (mildly on RLQ). absent: Guarding, Rigid Additional comments: CATHRYN drain in place, serous discharge present. Surgical site clean, dry and intact. - Extremities Exam Extremities Exam: Full ROM. absent: Calf Tenderness, Pedal Edema, Tenderness - Neurological Exam Neurological Exam: Alert, Awake, Oriented x3 Assessment and Plan - Assessment and Plan (Free Text) Assessment: 62 y/o M with no PMHx, resides in [facility] and visiting [facility], admitted for evaluation and management of acute appendicitis. -CT abdomen/pelvis: uncomplicated acute appendicitis without perforation. PLAN: >Acute Appendicitis. --POD 2. --Afebrile, recovering well from surgery. --Gen Surgery on board, Dr Soliman. --Ambulation encouraged. Physical therapy team on board. --On IV Zosyn. --Advance to regular diet today. --Continue management as ordered. >DVT Prophylaxis. --Lovenox 40mg SC daily. Case discussed with Dr Sonny Mcgarry PGY-2
[2018-06-09] MEDS: Simethicone 80 mg Chewtab PO PRN (16:39)
[2018-06-09] MEDS: Ciprofloxacin 400mg/200ml D5W 400 MG/200 ML BAG IVPB SCH (21:26)
[2018-06-10 06:45] LABS: HEMOGLOBIN 11.8 g/dL (12.0-18.0); MEAN CELL VOLUME 91.2 fl (80.0-94.0); MEAN CORPUSCULAR HEMOGLOBIN 31.1 pg (27.0-31.0); RBC 3.8 Mil/uL (4.40-5.90); RED CELL DISTRIBUTION WIDTH 12.7 % (11.5-14.5); WHITE BLOOD COUNT 6.8 K/uL (4.8-10.8)
[2018-06-10 07:02] LABS: ALB/GLOB RATIO 1.1 (1.0-2.1); ALBUMIN 3.1 g/dL (3.5-5.0); ALT/SGPT 66 U/L (21-72); AST/SGOT 25 U/L (17-59); BLOOD UREA NITROGEN 9 mg/dl (9-20); CALCIUM 8.5 mg/dL (8.4-10.2); GFR NON-AFRICAN AMERICAN > 60
[2018-06-10] MEDS: Enoxaparin 40 mg Syringe SC SCH (08:47)
[2018-06-10] MEDS ORDERED: Potassium Chloride 20 mEq/15 ml LIQ UD PO ONE (09:58)
--- NOTE | 2018-06-10 10:41 | CP.PCM.PN ---
Subjective - Date & Time of Evaluation Date of Evaluation: 06/10/18 Time of Evaluation: 07:30 - Subjective Subjective: 62 y/o M was seen and examined by bedside with Dr Dennis. Pt reports feeling well, was able to eat some solid food yesterday. Pain is well controlled with medications. Pt was unable to urinate last night, Calhoun catheter was placed with ~1900cc void. Pt is passing gasses, had a few bowel movements. Pt afebrile and tolerating PO. Objective - Vital Signs/Intake and Output Vital Signs (last 24 hours): Temp Pulse Resp BP Pulse Ox 98.1 F 54 L 20 123/70 95 06/10/18 08:24 06/10/18 08:24 06/10/18 08:24 06/10/18 08:24 06/10/18 08:24 Intake and Output: 06/10/18 06/10/18 06:59 18:59 Intake Total 100 Output Total 4400 Balance -4300 - Medications Medications: Current Medications Acetaminophen (Tylenol 325mg Tab) 650 mg PO Q6 DOMINGO Last Admin: 06/10/18 10:30 Dose: Not Given Enoxaparin Sodium (Lovenox) 40 mg SC DAILY DOMINGO; Protocol Last Admin: 06/10/18 08:47 Dose: 40 mg Hydromorphone HCl (Dilaudid) 0.5 mg IVP Q15M PRN PRN Reason: Pain, moderate (4-7) Last Admin: 06/07/18 12:00 Dose: 0.5 mg Ciprofloxacin (Cipro 400mg/200ml Dsw) 400 mg in 200 mls @ 200 mls/hr IVPB Q12 DOMINGO; Protocol Last Admin: 06/09/18 21:26 Dose: 200 mls/hr Ondansetron HCl (Zofran Inj) 4 mg IVP Q4 PRN PRN Reason: Nausea/Vomiting Last Admin: 06/09/18 02:49 Dose: 4 mg Oxycodone HCl (Oxycodone Immediate Release Tab) 5 mg PO Q4 PRN PRN Reason: Pain, moderate (4-7) Last Admin: 06/08/18 00:07 Dose: 5 mg Oxycodone HCl (Oxycodone Immediate Release Tab) 10 mg PO Q4 PRN PRN Reason: Pain, Severe (8-10) Last Admin: 06/09/18 18:45 Dose: 10 mg Simethicone (Mylicon Chew Tab) 80 mg PO Q8 PRN PRN Reason: GI distress Last Admin: 06/09/18 16:39 Dose: 80 mg Tamsulosin HCl (Flomax) 0.4 mg PO DAILY DOMINGO Last Admin: 06/10/18 08:46 Dose: 0.4 mg - Labs Labs: 06/10/18 06:15 06/10/18 06:15 PT 13.8 Seconds (9.8-13.1) H 06/07/18 09:20 INR 1.1 06/07/18 09:20 APTT 30.2 Seconds (25.6-37.1) 06/07/18 09:20 - Additional Findings Additional findings: - Constitutional Appears: No Acute Distress - Head Exam Head Exam: ATRAUMATIC, NORMAL INSPECTION - Eye Exam Eye Exam: EOMI, Normal appearance - ENT Exam ENT Exam: Mucous Membranes Moist - Neck Exam Neck Exam: Full ROM. absent: Meningismus - Respiratory Exam Respiratory Exam: NORMAL BREATHING PATTERN. absent: Rales, Rhonchi, Wheezes, Respiratory Distress - Cardiovascular Exam Cardiovascular Exam: REGULAR RHYTHM, +S1, +S2 - GI/Abdominal Exam GI & Abdominal Exam: Soft, Tenderness (mildly on RLQ). No suprapubic tenderness. absent: Guarding, Rigid Additional comments: Hitesh drain in mid lower abdomen, minimal serous discharge present. Surgical site clean, dry and intact. Calhoun catheter present. - Extremities Exam Extremities Exam: Full ROM. absent: Calf Tenderness, Pedal Edema, Tenderness - Neurological Exam Neurological Exam: Alert, Awake, Oriented x3 Assessment and Plan - Assessment and Plan (Free Text) Assessment: 62 y/o M with no PMHx, resides in [place] and visiting [facility], admitted for evaluation and management of acute appendicitis. -CT abdomen/pelvis: uncomplicated acute appendicitis without perforation. PLAN: >Acute Appendicitis. --POD 3. --Afebrile, recovering well from surgery. --Gen Surgery on board, Dr Soliman. --Considering changing IV to PO antibiotics since pt declining IV therapy. --Tolerating regular diet. --F/U Gen Surgery recommendations. >Urinary Retention --Acute --Calhoun in place. --Bladder training ordered. --Flomax ordered. --CT Abd/pelvis reviewed and showed prostatomegaly. --Considering Urology consult if NO improvement. >DVT Prophylaxis. --Lovenox 40mg SC daily. Case discussed with Dr Sonny Mcgarry PGY-2
[2018-06-10] MEDS: Ciprofloxacin 400mg/200ml D5W 400 MG/200 ML BAG IVPB SCH (11:37)
--- NOTE | 2018-06-10 11:44 | CP.PCM.PN ---
Subjective - Date & Time of Evaluation Date of Evaluation: 06/10/18 Time of Evaluation: 10:30 - Subjective Subjective: General Surgery: Dr. Soliman Patient seen and examined this am at bedside. He is refusing to have IV placed for IV abx administration. Pt denies abdominal pain, n/v, f/c. he endorses BM and flatus. he is ambulating without assistance. He currently has a thomas catheter d/t urinary retention; thomas currently clamped for trial. 12 point ROS otherwise negative Objective - Vital Signs/Intake and Output Vital Signs (last 24 hours): Temp Pulse Resp BP Pulse Ox 98.1 F 54 L 20 123/70 95 06/10/18 08:24 06/10/18 08:24 06/10/18 08:24 06/10/18 08:24 06/10/18 08:24 Intake and Output: 06/10/18 06/10/18 06:59 18:59 Intake Total 100 Output Total 4400 Balance -4300 - Medications Medications: Current Medications Acetaminophen (Tylenol 325mg Tab) 650 mg PO Q6 DOMINGO Last Admin: 06/10/18 10:30 Dose: Not Given Enoxaparin Sodium (Lovenox) 40 mg SC DAILY DOMINGO; Protocol Last Admin: 06/10/18 08:47 Dose: 40 mg Metronidazole (Flagyl) 500 mg PO Q8 DOMINGO; Protocol Ondansetron HCl (Zofran Inj) 4 mg IVP Q4 PRN PRN Reason: Nausea/Vomiting Last Admin: 06/09/18 02:49 Dose: 4 mg Oxycodone HCl (Oxycodone Immediate Release Tab) 5 mg PO Q4 PRN PRN Reason: Pain, moderate (4-7) Last Admin: 06/08/18 00:07 Dose: 5 mg Oxycodone HCl (Oxycodone Immediate Release Tab) 10 mg PO Q4 PRN PRN Reason: Pain, Severe (8-10) Last Admin: 06/09/18 18:45 Dose: 10 mg Simethicone (Mylicon Chew Tab) 80 mg PO Q8 PRN PRN Reason: GI distress Last Admin: 06/09/18 16:39 Dose: 80 mg Tamsulosin HCl (Flomax) 0.4 mg PO DAILY DOMINGO Last Admin: 06/10/18 08:46 Dose: 0.4 mg - Labs Labs: 06/10/18 06:15 06/10/18 06:15 PT 13.8 Seconds (9.8-13.1) H 06/07/18 09:20 INR 1.1 06/07/18 09:20 APTT 30.2 Seconds (25.6-37.1) 06/07/18 09:20 - Constitutional Appears: Well, Non-toxic, No Acute Distress - Head Exam Head Exam: ATRAUMATIC, NORMOCEPHALIC - Eye Exam Eye Exam: EOMI - ENT Exam ENT Exam: Mucous Membranes Moist - Cardiovascular Exam Cardiovascular Exam: REGULAR RHYTHM - GI/Abdominal Exam GI & Abdominal Exam: Soft. absent: Guarding, Tenderness Additional comments: incisions CDI - Neurological Exam Neurological Exam: Alert, Awake, Oriented x3 - Psychiatric Exam Psychiatric exam: Normal Affect, Normal Mood - Skin Skin Exam: Dry, Intact, Normal Color, Warm Additional comments: incisions CDI Assessment and Plan - Assessment and Plan (Free Text) Assessment: 62 yr old male s/p laparoscopic appendectomy for perforated gangrenous appendicitis, POD 2 Plan: - continue OOBTC, ambulation, IS use - pain control - pt refusing IV insertion, PO abx ok - f/u pathology - PT - DVT prophylaxis - Thomas management per primary - Further recs per Dr. Jourdan Chan, PGY 1
[2018-06-11 07:02] LABS: HEMOGLOBIN 11.9 g/dL (12.0-18.0); MEAN CELL VOLUME 91.2 fl (80.0-94.0); MEAN CORPUSCULAR HEMOGLOBIN 30.9 pg (27.0-31.0); MEAN CORPUSCULAR HGB CONC 33.8 g/dL (33.0-37.0); RBC 3.86 Mil/uL (4.40-5.90); RED CELL DISTRIBUTION WIDTH 13.1 % (11.5-14.5); WHITE BLOOD COUNT 5.6 K/uL (4.8-10.8)
[2018-06-11 07:15] LABS: BLOOD UREA NITROGEN 10 mg/dl (9-20); CALCIUM 8.7 mg/dL (8.4-10.2); GFR NON-AFRICAN AMERICAN > 60
[2018-06-11] MEDS ORDERED: Potassium Chloride 20 mEq ER Tab PO ONE (07:35)
--- NOTE | 2018-06-11 07:37 | CP.PCM.PN ---
Subjective - Date & Time of Evaluation Date of Evaluation: 06/11/18 Time of Evaluation: 07:35 - Subjective Subjective: Surgery Progress Note- Dr. Soliman Patient seen and examined. No new complaints at this time. Stating able to void, however feels unable to completely void. Tolerating regular diet. Denies nausea vomiting. + OOB and ambulating. Drain in place w/ serous drainage. Objective - Vital Signs/Intake and Output Vital Signs (last 24 hours): Temp Pulse Resp BP Pulse Ox 99.4 F 67 18 121/70 94 L 06/10/18 16:15 06/10/18 16:15 06/10/18 16:15 06/10/18 16:15 06/10/18 16:15 Intake and Output: 06/11/18 06/11/18 06:59 18:59 Output Total 20 Balance -20 - Medications Medications: Current Medications Acetaminophen (Tylenol 325mg Tab) 650 mg PO Q6 [facility] Last Admin: 06/11/18 04:00 Dose: Not Given Enoxaparin Sodium (Lovenox) 40 mg SC DAILY [facility]; Protocol Last Admin: 06/10/18 08:47 Dose: 40 mg Metronidazole (Flagyl) 500 mg PO Q8@0600,1400,2000 [facility]; Protocol Last Admin: 06/11/18 06:04 Dose: 500 mg Ondansetron HCl (Zofran Inj) 4 mg IVP Q4 PRN PRN Reason: Nausea/Vomiting Last Admin: 06/09/18 02:49 Dose: 4 mg Oxycodone HCl (Oxycodone Immediate Release Tab) 5 mg PO Q4 PRN PRN Reason: Pain, moderate (4-7) Last Admin: 06/08/18 00:07 Dose: 5 mg Oxycodone HCl (Oxycodone Immediate Release Tab) 10 mg PO Q4 PRN PRN Reason: Pain, Severe (8-10) Last Admin: 06/09/18 18:45 Dose: 10 mg Simethicone (Mylicon Chew Tab) 80 mg PO Q8 PRN PRN Reason: GI distress Last Admin: 06/09/18 16:39 Dose: 80 mg Sodium Phosphate (Potassium/Sodium Phosphate) 500 mg PO Q4H [facility] Stop: 06/11/18 11:46 Tamsulosin HCl (Flomax) 0.4 mg PO DAILY [facility] Last Admin: 06/10/18 08:46 Dose: 0.4 mg - Labs Labs: 06/11/18 06:40 06/11/18 06:40 PT 13.8 Seconds (9.8-13.1) H 06/07/18 09:20 INR 1.1 06/07/18 09:20 APTT 30.2 Seconds (25.6-37.1) 06/07/18 09:20 - Constitutional Appears: Non-toxic, No Acute Distress - Head Exam Head Exam: ATRAUMATIC - Eye Exam Eye Exam: EOMI. absent: Scleral icterus - ENT Exam ENT Exam: Mucous Membranes Moist - Respiratory Exam Respiratory Exam: NORMAL BREATHING PATTERN. absent: Accessory Muscle Use, Respiratory Distress - Cardiovascular Exam Cardiovascular Exam: REGULAR RHYTHM. absent: Bradycardia, Tachycardia - GI/Abdominal Exam GI & Abdominal Exam: Soft. absent: Firm, Guarding, Rigid, Tenderness Additional comments: Drain in place w/ serous drainage - Extremities Exam Extremities Exam: absent: Calf Tenderness - Psychiatric Exam Psychiatric exam: Normal Affect - Skin Skin Exam: Intact, Warm Assessment and Plan - Assessment and Plan (Free Text) Assessment: s/p lap appendectomy POD#4 Plan: - diet as tolerated - continue to monitor drain output - thomas for urinary retention. C/S Urology; all recs appreciated - PO Abx - cleared for discharge from surgical stand point - will remove drain when patient is discharged - further recs per Dr. Soliman surgical attending PGY2
--- NOTE | 2018-06-11 07:42 | CP.PCM.PN ---
Subjective - Date & Time of Evaluation Date of Evaluation: 06/11/18 Time of Evaluation: 07:20 - Subjective Subjective: 62 y/o M was seen and examined by bedside with Dr Dennis. Pt reports feeling OK. Pt still retaining urine, had 2 small voids overnight, but bladder scan still shows urine retention. Pt denies burning pain with urination, urinary urgency, incontinence or hematuria. Hitesh drain still present with minimal collection. Pt afebrile, tolerating PO. --On chart review: Urine Cx positive for Staph capitis. Objective - Vital Signs/Intake and Output Vital Signs (last 24 hours): Temp Pulse Resp BP Pulse Ox 99.4 F 67 18 121/70 94 L 06/10/18 16:15 06/10/18 16:15 06/10/18 16:15 06/10/18 16:15 06/10/18 16:15 Intake and Output: 06/11/18 06/11/18 06:59 18:59 Output Total 20 Balance -20 - Medications Medications: Current Medications Acetaminophen (Tylenol 325mg Tab) 650 mg PO Q6 [facility] Last Admin: 06/11/18 04:00 Dose: Not Given Enoxaparin Sodium (Lovenox) 40 mg SC DAILY [facility]; Protocol Last Admin: 06/10/18 08:47 Dose: 40 mg Metronidazole (Flagyl) 500 mg PO Q8@0600,1400,2000 [facility]; Protocol Last Admin: 06/11/18 06:04 Dose: 500 mg Ondansetron HCl (Zofran Inj) 4 mg IVP Q4 PRN PRN Reason: Nausea/Vomiting Last Admin: 06/09/18 02:49 Dose: 4 mg Oxycodone HCl (Oxycodone Immediate Release Tab) 5 mg PO Q4 PRN PRN Reason: Pain, moderate (4-7) Last Admin: 06/08/18 00:07 Dose: 5 mg Oxycodone HCl (Oxycodone Immediate Release Tab) 10 mg PO Q4 PRN PRN Reason: Pain, Severe (8-10) Last Admin: 06/09/18 18:45 Dose: 10 mg Simethicone (Mylicon Chew Tab) 80 mg PO Q8 PRN PRN Reason: GI distress Last Admin: 06/09/18 16:39 Dose: 80 mg Sodium Phosphate (Potassium/Sodium Phosphate) 500 mg PO Q4H [facility] Stop: 06/11/18 11:46 Tamsulosin HCl (Flomax) 0.4 mg PO DAILY [facility] Last Admin: 06/10/18 08:46 Dose: 0.4 mg - Labs Labs: 06/11/18 06:40 06/11/18 06:40 PT 13.8 Seconds (9.8-13.1) H 06/07/18 09:20 INR 1.1 06/07/18 09:20 APTT 30.2 Seconds (25.6-37.1) 06/07/18 09:20 - Constitutional Appears: Well, No Acute Distress - Head Exam Head Exam: ATRAUMATIC, NORMAL INSPECTION - Eye Exam Eye Exam: EOMI - ENT Exam ENT Exam: Mucous Membranes Moist - Neck Exam Neck Exam: Full ROM, Normal Inspection. absent: Meningismus - Respiratory Exam Respiratory Exam: NORMAL BREATHING PATTERN. absent: Rales, Rhonchi, Wheezes, Respiratory Distress - Cardiovascular Exam Cardiovascular Exam: REGULAR RHYTHM, +S1, +S2 - GI/Abdominal Exam GI & Abdominal Exam: Soft, Normal Bowel Sounds. absent: Firm, Guarding, Rigid, Tenderness Additional comments: Hitesh drain in mid lower abdomen, minimal serous discharge present. Surgical site clean, dry and intact. Calhoun catheter present. - Extremities Exam Extremities Exam: Full ROM. absent: Calf Tenderness, Pedal Edema - Neurological Exam Neurological Exam: Alert, Awake, Oriented x3 Assessment and Plan - Assessment and Plan (Free Text) Assessment: 62 y/o M with no PMHx, resides in [place] and visiting [facility], admitted for evaluation and management of acute appendicitis. -CT abdomen/pelvis: uncomplicated acute appendicitis without perforation, prostatomegaly. PLAN: >Acute Appendicitis. --POD 4. --Afebrile, recovering well from surgery. --Gen Surgery on board, Dr Soliman. --Hitesh drain still in place. --PO Metronidazole. --Tolerating regular diet. --F/U Gen Surgery recommendations. >Urinary Retention --Acute, Calhoun discontinued. --Flomax dose increased to 0.8mg. --CT Abd/pelvis reviewed and showed prostatomegaly. --Urology Consult, Dr Kinsey. >Acute UTI --Urinalysis with small Leuko esterase. --Urine Culture positive for Staph capitis. --PO Ciprofloxacin initiated. >DVT Prophylaxis. --Lovenox 40mg SC daily. Case discussed with Dr Sonny Mcgarry PGY-2
[2018-06-11] MEDS: Enoxaparin 40 mg Syringe SC SCH (08:17)
[2018-06-11 08:20] VITALS: BP 130/81; PULSE 57; RESP 20; TEMP 97.7; O2SAT 98
[2018-06-11] MEDS ORDERED: Chlorhexidine Gluconate 1 APPL/PKT TP ONE (10:47)
--- NOTE | 2018-06-11 12:24 | CP.PCM.DIS ---
Provider - Provider Date of Admission: 06/07/18 03:39 Attending physician: Андрей Dennis MD Primary care physician: In [facility]. Consults: 06/07/18 03:37 Surgery [General Surgery Consult] Stat Comment: Consulting Provider: Jabari Soliman Consulting Physician: Jabari Soliman Reason for Consult: appendicitis 06/10/18 23:24 Urology Consult Routine Comment: Consulting Provider: Terry Kinsey Consulting Physician: Terry Kinsey Reason for Consult: urinary retention Time Spent in preparation of Discharge (in minutes): 30 Diagnosis - Discharge Diagnosis (1) Appendicitis, acute Status: Acute (2) Acute urinary retention Status: Acute Hospital Course - Lab Results Lab Results: Micro Results 06/07/18 09:42 Blood Blood Culture - Preliminary NO GROWTH AFTER 4 DAYS 06/07/18 09:42 Blood Blood Culture - Preliminary NO GROWTH AFTER 4 DAYS 06/07/18 03:19 Urine Random Urine Culture - Final Staphylococcus Capitis Most Recent Lab Values WBC 5.6 K/uL (4.8-10.8) 06/11/18 06:40 RBC 3.86 Mil/uL (4.40-5.90) L 06/11/18 06:40 Hgb 11.9 g/dL (12.0-18.0) L 06/11/18 06:40 Hct 35.2 % (35.0-51.0) 06/11/18 06:40 MCV 91.2 fl (80.0-94.0) 06/11/18 06:40 MCH 30.9 pg (27.0-31.0) 06/11/18 06:40 MCHC 33.8 g/dL (33.0-37.0) 06/11/18 06:40 RDW 13.1 % (11.5-14.5) 06/11/18 06:40 Plt Count 186 K/uL (130-400) 06/11/18 06:40 MPV 8.0 fl (7.2-11.7) 06/08/18 06:15 Neut % (Auto) 79.2 % (50.0-75.0) H 06/08/18 06:15 Lymph % (Auto) 15.1 % (20.0-40.0) L 06/08/18 06:15 Scott % (Auto) 5.1 % (0.0-10.0) 06/08/18 06:15 Eos % (Auto) 0.2 % (0.0-4.0) 06/08/18 06:15 Baso % (Auto) 0.4 % (0.0-2.0) 06/08/18 06:15 Neut # (Auto) 7.3 K/uL (1.8-7.0) H 06/08/18 06:15 Lymph # (Auto) 1.4 K/uL (1.0-4.3) 06/08/18 06:15 Scott # (Auto) 0.5 K/uL (0.0-0.8) 06/08/18 06:15 Eos # (Auto) 0.0 K/uL (0.0-0.7) 06/08/18 06:15 Baso # (Auto) 0.0 K/uL (0.0-0.2) 06/08/18 06:15 Neutrophils % (Manual) 88 % (42-75) H 06/07/18 06:05 Band Neutrophils % 1 % (0-2) 06/07/18 06:05 Lymphocytes % (Manual) 7 % (20-50) L 06/07/18 06:05 Monocytes % (Manual) 4 % (0-10) 06/07/18 06:05 Platelet Estimate Normal (NORMAL) 06/07/18 06:05 RBC Morphology Normal (NORMAL) 06/07/18 06:05 PT 13.8 Seconds (9.8-13.1) H 06/07/18 09:20 INR 1.1 06/07/18 09:20 APTT 30.2 Seconds (25.6-37.1) 06/07/18 09:20 Sodium 138 mmol/l (132-148) 06/11/18 06:40 Potassium 3.5 MMOL/L (3.6-5.0) L 06/11/18 06:40 Chloride 103 mmol/L (98-107) 06/11/18 06:40 Carbon Dioxide 30 mmol/L (22-30) 06/11/18 06:40 Anion Gap 9 (10-20) L 06/11/18 06:40 BUN 10 mg/dl (9-20) 06/11/18 06:40 Creatinine 0.7 mg/dl (0.8-1.5) L 06/11/18 06:40 Est GFR ( Amer) > 60 06/11/18 06:40 Est GFR (Non-Af Amer) > 60 06/11/18 06:40 Random Glucose 104 mg/dL (75-110) 06/11/18 06:40 Lactic Acid 2.8 mmol/L (0.7-2.1) H 06/06/18 20:05 Calcium 8.7 mg/dL (8.4-10.2) 06/11/18 06:40 Phosphorus 2.4 mg/dl (2.5-4.5) L 06/11/18 06:40 Magnesium 2.0 MG/DL (1.6-2.3) 06/11/18 06:40 Total Bilirubin 1.1 mg/dl (0.2-1.3) 06/10/18 06:15 AST 25 U/L (17-59) 06/10/18 06:15 ALT 66 U/L (21-72) 06/10/18 06:15 Alkaline Phosphatase 118 U/L (38-126) 06/10/18 06:15 Total Protein 6.0 G/DL (6.3-8.2) L 06/10/18 06:15 Albumin 3.1 g/dL (3.5-5.0) L D 06/10/18 06:15 Globulin 2.9 gm/dL (2.2-3.9) 06/10/18 06:15 Albumin/Globulin Ratio 1.1 (1.0-2.1) 06/10/18 06:15 Vitamin B12 323 pg/mL (239-931) 06/08/18 08:09 TSH 3rd Generation 2.16 mIU/ML (0.46-4.68) 06/08/18 08:09 Urine Color Yellow (YELLOW) 06/07/18 03:15 Urine Clarity Clear (Clear) 06/07/18 03:15 Urine pH 6.0 (5.0-8.0) 06/07/18 03:15 Ur Specific [place] 1.054 (1.003-1.030) H 06/07/18 03:15 Urine Protein Negative mg/dL (NEGATIVE) 06/07/18 03:15 Urine Glucose (UA) Neg mg/dL (NEGATIVE) 06/07/18 03:15 Urine Ketones Negative mg/dL (NEGATIVE) 06/07/18 03:15 Urine Blood Small (NEGATIVE) 06/07/18 03:15 Urine Nitrate Negative (NEGATIVE) 06/07/18 03:15 Urine Bilirubin Negative (NEGATIVE) 06/07/18 03:15 Urine Urobilinogen 0.2-1.0 mg/dL (0.2-1.0) 06/07/18 03:15 Ur Leukocyte Esterase Small Melody/uL (Negative) 06/07/18 03:15 Urine RBC (Auto) 9 /hpf (0-3) H 06/07/18 03:15 Urine Microscopic WBC 18 /hpf (0-5) H 06/07/18 03:15 - Hospital Course Hospital Course: 62 y/o M with no PMHx, resides in [place] and visiting [facility], admitted for evaluation and management of acute appendicitis. CT abdomen/pelvis showed uncomplicated acute appendicitis without perforation. Pt had a laparoscopic appendectomy on 06/07/18 due to acute gangrenous perforated appendicitis. During recovery, pt developed urinary retention, Calhoun was placed and then discontinued a day after. Urine culture positive for Staph capitis. Pt able to urinate in small amounts. CT scan showed prostatomegaly. Urology specialist evaluated patient and recommended Flomax and Ciprofloxacin as outpatient. Pt afebrile, tolerating PO, stable for discharge. - Date & Time of H&P Date of H&P: 06/07/18 Time of H&P: 09:03 Discharge Exam - Additional Findings Additional findings: - Constitutional Appears: Well, No Acute Distress - Head Exam Head Exam: ATRAUMATIC, NORMAL INSPECTION - Eye Exam Eye Exam: EOMI - ENT Exam ENT Exam: Mucous Membranes Moist - Neck Exam Neck Exam: Full ROM, Normal Inspection. absent: Meningismus - Respiratory Exam Respiratory Exam: NORMAL BREATHING PATTERN. absent: Rales, Rhonchi, Wheezes, Respiratory Distress - Cardiovascular Exam Cardiovascular Exam: REGULAR RHYTHM, +S1, +S2 - GI/Abdominal Exam GI & Abdominal Exam: Soft, Normal Bowel Sounds. absent: Firm, Guarding, Rigid, Tenderness Additional comments: Hitesh drain in mid lower abdomen, minimal serous discharge present. Surgical site clean, dry and intact. Calhoun catheter present. - Extremities Exam Extremities Exam: Full ROM. absent: Calf Tenderness, Pedal Edema - Neurological Exam Neurological Exam: Alert, Awake, Oriented x3 Discharge Plan - Discharge Medications Prescriptions: Ciprofloxacin [Cipro] 500 mg PO Q12 10 Days tab Tamsulosin [Flomax] 0.8 mg PO DAILY 30 Days cap - Follow Up Plan Condition: STABLE Disposition: HOME/ ROUTINE Instructions: Appendectomy, Laparoscopic Surgery Additional Instructions: Please f/u with PCP within 1 week. If blood in urine, difficulty urinating, fever or chills please go to ED. Referrals: Jabari Soliman MD [Staff Provider] -
--- NOTE | 2018-06-11 20:49 | CON ---
DATE: 06/11/2018 TIME OF CONSULTATION: Roughly 10:50 a.m. BRIEF HISTORY: The patient is a 62-year-old white male visiting from [facility], who underwent an emergency laparoscopic appendectomy and went into partial urinary retention postop. The patient's bladder scan showed over 700 mL, but the patient is voiding small amounts of urine, about 150 mL each void. The patient is relatively comfortable. No complaint of any abdominal distention or pain. No dysuria, gross hematuria, renal colic or abdominal pain. The patient was started on Flomax 0.4 mg daily and we just increased the Flomax to 0.8 mg daily. PAST MEDICAL HISTORY: The patient has no other medical history. PAST SURGICAL HISTORY: His past surgical history includes right shoulder surgery many years ago. ALLERGIES: HE IS ALLERGIC TO PENICILLIN. SOCIAL HISTORY: He has no history of any tobacco use and he is just a social drinker PHYSICAL EXAMINATION: VITAL SIGNS: Today, 06/11/2018, shows a temperature of 97.7, pulse rate is 57, blood pressure is 130/81, respiratory rate is 20, and O2 sat on room air is 98%. GENERAL: Well developed, well nourished white male, he is alert, he is oriented. HEENT: Grossly within normal limits. NECK: Supple. Thyroid not palpable. ABDOMEN: Soft, not distended, minimal tenderness. No CVA tenderness and no suprapubic tenderness. EXTREMITIES: He has full range of motion of both upper and lower extremities. No leg edema. He has tenderness present. RECTAL: Shows normal rectal tone without fluctuance or masses. Prostate is just slightly enlarged, smooth, symmetrical, nontender, without nodules or indurations with the palpable median sulcus. GENITALIA: He is circumcised. Normal glans and meatus without any rashes or lesions visualized. Testes are down bilaterally, nontender without any masses. No inguinal hernias are palpated. LABORATORY DATA: His urine culture was positive for Staphylococcus capitis, sensitive to ciprofloxacin, erythromycin, nitrofurantoin, levoflaxacin, oxacillin, tetracycline, vancomycin and penicillin. His laboratory evaluation today 06/11/2018 shows a CBC with a WBC count of 5.6, hemoglobin of 11.9, hematocrit of 35.2 with a platelet count was 186,000. His chemistry profile shows a sodium of 138, potassium of 3.5, chloride 103, CO2 of 30, BUN and creatinine of 10 and 0.7 respectively with a GFR of greater than 60. His random glucose was 104. Calcium 9.7. Phosphorus 2.4 and magnesium 2. DIAGNOSTIC IMPRESSION: 1. Possible urinary retention. 2. Benign prostatic hyperplasia. 3. Possible urinary tract infection, Staphylococcus capitis sensitive to Cipro and penicillin. PLAN: Plan for this patient will be to discharge the patient. The patient can be discharged home for travel to [place] for the Pass[place] of holiday on Cipro 500 mg b.i.d. for 10 days and Flomax 0.8 mg daily for treatment of benign prostatic hyperplasia. Terry Kinsey MD MTDD
== END 2018-06-11 13:06 | disposition home or self-care (01) | DRG 339 ==
LOC: H.ER 19:09 → H.ERHOLD 06-07 03:39 → H.MEDSURG1 06-07 04:47
PROVIDERS: ADMIT Internal Medicine; ATTEND Internal Medicine
PROC: 0DTJ4ZZ Resection of Appendix, Percutaneous Endoscopic Approach (ICD-10-PCS; principal; 2018-06-07 09:45)
DX: K35.32 Acute appendicitis with perforation, localized peritonitis, and gangrene, without abscess (principal); B95.7 Other staphylococcus as the cause of diseases classified elsewhere; N40.1 Benign prostatic hyperplasia with lower urinary tract symptoms; R33.8 Other retention of urine; Z88.2 Allergy status to sulfonamides; N39.0 Urinary tract infection, site not specified; Z16.29 Resistance to other single specified antibiotic